=== PATIENT | male | born 1990 | race Two or more races ===

== ENCOUNTER 2025-06-01 02:42 | Emergency (ER) | payer OTHER ==
[~2025-06-01] VITALS: Ht 170.2 cm; Wt 68.0 kg
[2025-06-01] MEDS ORDERED: KETOROLAC TROMETHAMINE 15 MG/ML VIAL ONE (04:38)
[2025-06-01] MEDS ORDERED: MORPHINE SULFATE INJ 4 MG/ML DISP.SYRIN ONE (04:38)
[2025-06-01] MEDS ORDERED: ONDANSETRON HCL/PF 4 MG/2 ML VIAL ONE (04:38)
[2025-06-01] MEDS ORDERED: LORAZEPAM INJ 2 MG/ML VIAL ONE (04:39)
[2025-06-01] MEDS: MORPHINE SULFATE INJ 2 MG/ML DISP.SYRIN IV ONE (04:40)
[2025-06-01] MEDS: LORAZEPAM INJ 2 MG/ML VIAL IV ONE (04:40)
[2025-06-01] MEDS: KETOROLAC TROMETHAMINE 15 MG/ML VIAL IV ONE (04:40)
[2025-06-01] MEDS: ONDANSETRON HCL/PF 4 MG/2 ML VIAL IVP ONE (04:40)
[2025-06-01 05:51] VITALS: BP 142/76; TEMP 98.5; O2SAT 99
== END 2025-06-01 05:51 | disposition home or self-care (01) ==
LOC: ER 02:49
DX: M26.629 Arthralgia of temporomandibular joint, unspecified side (principal); R51.9 Headache, unspecified; R11.2 Nausea with vomiting, unspecified; J45.909 Unspecified asthma, uncomplicated; K21.9 Gastro-esophageal reflux disease without esophagitis; Z79.899 Other long term (current) drug therapy
CPT/HCPCS: 99285; 96374; 96375; J1885; J2060; J2270; J2405